=== PATIENT | male | born 1950 | race Caucasian/White ===

== ENCOUNTER 2017-06-05 08:35 | Inpatient (IN) | payer OTHER, MEDICARE ==
[2017-05-24 10:58] LABS: BASOPHILS 0.7 %; BASOPHILS ABSOLUTE 0.05 10/3/uL (0.0-0.16); EOSINOPHILS 2.6 %; EOSINOPHILS ABSOLUTE 0.19 10/3/uL (0.0-0.53); HEMATOCRIT 46.8 % (40.0-51.0); HEMOGLOBIN 16.6 g/dL (13.6-17.8); IMMATURE GRANULOCYTES 0.3 %; IMMATURE GRANULOCYTES ABSOLUTE 0.02 10/3/uL (0.0-0.11); LYMPHOCYTES 30.6 %; LYMPHOCYTES ABSOLUTE 2.23 10/3/uL (0.67-4.30); MANUAL DIFF NO %; MEAN CORPUS HGB CONC 35.5 g/dL (32.0-36.0); MEAN CORPUSCULAR HEMOGLOB 31.3 pg (26.0-34.0); MEAN CORPUSCULAR VOLUME 88.1 fL (80-100); MEAN PLATELET VOLUME 9.8 fL (9.2-13.0); MONOCYTES ABSOLUTE 0.51 10/3/uL (0.21-1.20); NEUTROPHILS 58.8 %; NEUTROPHILS ABSOLUTE 4.29 10/3/uL (2.02-8.40); PLATELET COUNT 158 10/3/uL (150-400); RBC DISTRIBUTION WIDTH 12.6 % (12.0-16.0); RED CELL COUNT 5.31 10/6/uL (4.7-6.1); WHITE BLOOD CELLS 7.3 10/3/uL (4.5-10.5)
[2017-05-24 11:13] LABS: ASCORBIC ACID (UR NOT ORDER) NEG (NEG); BILIRUBIN, URINE NEGATIVE (NEG); INTERNATIONAL NORMAL RATI 1.1 UNITS (-); KETONE, URINE NEGATIVE (NEG); LEUKOCYTE ESTERASE(NOT OR NEG (NEG); PROTIME (NOT ORD) 13.9 SEC (12.0-14.5); WBC (NOT ORDERED) (RFLEX) 1 (0-5)
[2017-05-24 11:16] LABS: A/G RATIO 1.3 (0.7-1.9); ALKALINE PHOSPHATASE 79 U/L (45-117); BUN (BLOOD UREA NITROGEN) 13 MG/DL (6-23); CALCIUM, SERUM 8.8 MG/DL (8.5-10.4); CHLORIDE, SERUM 104 MMOL/L (96-112); CO2 (CARBON DIOXIDE) 32 MMOL/L (24-34); CREATININE 0.86 MG/DL (0.70-1.30); GFR AFRICAN AMERICAN 104 ML/MIN (>=60); GFR NON AFRICAN AMERICAN 90 ML/MIN (>=60); GLUCOSE, SERUM 85 MG/DL (60-99); POTASSIUM, SERUM 4.3 MMOL/L (3.5-5.3); SGOT(AST) 22 U/L (5-40); SGPT(ALT) 33 U/L (5-65); SODIUM, SERUM 140 MMOL/L (135-148); TOTAL BILIRUBIN 0.8 MG/DL (0-1.2)
[~2017-06-05] VITALS: Ht 194.3 cm; Wt 112.3 kg
--- NOTE | ~2017-06-05 | OP ---
Record Of Operation [facility] [address] [place]. [address] NAME: PRIYANKA PATEL : 50 STATUS : ADM IN PAT#: [id number] AGE: 67 ADM/REG DATE : 06/05/17 MR#: [id number] REPORT SERV DATE: 06/06/17 DICTATED BY: DARLENE PAULINO DATE: 06/05/17 REPORT STATUS : Draft TRANSCRIBED BY: MODL DATE: 06/05/17 DATE OF PROCEDURE: 06/05/2017 PREOPERATIVE DIAGNOSIS: Left knee arthritis. POSTOPERATIVE DIAGNOSIS: Left knee arthritis. PROCEDURE PERFORMED: Left total knee arthroplasty. SURGEON: Darlene Paulino MD HAND SALTER: Suraj Martinez. ANESTHESIA: General with adductor block and local infusion. PROCEDURE IN DETAIL: The patient is clearly identified and after obtaining informed consent is brought to the operating room at [facility] where anesthesia is induced uneventfully with excellent anesthetic effect. Subsequently, the affected extremity is prepped and draped in the usual manner and after an appropriate time-out procedure is performed, via an anterior approach, the skin is divided, fascial planes are elevated, paramedial approach to the knee is made. The structures themselves are elevated, excised, and debrided were appropriate, whereupon the patella is carefully everted, calipered, and planed and with the size and type being reproduced with the appropriate-size patella, trialing is performed successfully. At this point, the patella is then carefully subluxed laterally, the knee is flexed, osteophytes around the distal femur are removed, followed by the ACL being divided. The femoral canal is entered and vented, at which point with the intramedullary guide being utilized, the distal femoral cut is made. At this point, the tibia is carefully subluxed anteriorly. The surrounding soft tissues to the tibia are protected with Hohmann retractors, at which point the extramedullary guide is utilized to perform the proximal tibial cut and after cleansing these tissues, the spacer block is utilized in extension to confirm excellent extension, stability, and alignment. The guiding pins are then all carefully removed and the knee is then flexed. The femur is sized, whereupon the anterior, posterior, chamfer, and box cuts are made appropriately. The proximal tibia then is assessed. Osteophytes and surrounding soft tissues are removed and debrided were appropriate. Posterior osteophytes are removed as well. The menisci are excised and thus concluding trialings performed successfully. The proximal tibia then is carefully prepared utilizing proper cement technique. The permanent implants have been carefully placed into position uneventfully where upon copious irrigations performed, the permanent tibial implants applied and thus concluded. The joint was then copiously irrigated, at which point it is closed carefully in layers including Vicryl and gala for the skin, at which point Aquacel sterile dressing is applied. The patient is allowed to awaken and is transferred to the bed and subsequently to the recovery room in stable condition having tolerated the procedure well. ESTIMATED BLOOD LOSS: 75. Record Of Operation [facility] [address] [place]. [address] NAME: PRIYANKA PATEL : 50 STATUS : ADM IN [facility]#: [id number] AGE: 67 ADM/REG DATE : 06/05/17 MR#: [id number] REPORT SERV DATE: 06/06/17 DICTATED BY: DARLENE PAULINO DATE: 06/05/17 REPORT STATUS : Draft TRANSCRIBED BY: WILL DATE: 06/05/17 FLUIDS: 2000. TOURNIQUET TIME: 52 minutes. PATHOLOGY: Sent specimen. MICROBIOLOGY: None. COMPLICATIONS: None. SPONGE AND NEEDLE COUNTS: Reportedly correct. ANTIBIOTICS: Administered appropriately preoperatively and ordered to be discontinued within 23 hours. IMPLANTS: Attune knee by DePuy, femur 9, tibia 9, patella 41, polyethylene 05/29. NICK/WILL Darlene Paulino M.D. / [id number] CC: Darlene Paulino M.D.
[~2017-06-05 08:35] MED LIST: BACDS PO; LIPITOR20 PO; LISINOPRIL40 MG PO; NORCO1 TA1 PO; PRAVAC PO; PRIN20 PO; PROAIRRESP INH; TOPXL50 PO; ULTRAM50 PO; ZESTRIL10 MG PO
[2017-06-06 04:44] LABS: HEMATOCRIT 38.7 % (40.0-51.0); HEMOGLOBIN 13.7 g/dL (13.6-17.8)
[2017-06-06 04:51] LABS: INTERNATIONAL NORMAL RATI 1.2 UNITS (-); PROTIME (NOT ORD) 14.9 SEC (12.0-14.5)
[2017-06-06 04:55] LABS: CHLORIDE, SERUM 102 MMOL/L (96-112); CREATININE 0.84 MG/DL (0.70-1.30); GFR AFRICAN AMERICAN 105 ML/MIN (>=60); GFR NON AFRICAN AMERICAN 91 ML/MIN (>=60); POTASSIUM, SERUM 4.4 MMOL/L (3.5-5.3); SODIUM, SERUM 135 MMOL/L (135-148)
[2017-06-06 04:56] LABS: BUN (BLOOD UREA NITROGEN) 19 MG/DL (6-23); CALCIUM, SERUM 7.8 MG/DL (8.5-10.4); CO2 (CARBON DIOXIDE) 26 MMOL/L (24-34); GLUCOSE, SERUM 148 MG/DL (60-99)
[2017-06-07 06:06] LABS: HEMATOCRIT 35.9 % (40.0-51.0); HEMOGLOBIN 12.7 g/dL (13.6-17.8)
[2017-06-07 06:13] LABS: INTERNATIONAL NORMAL RATI 1.7 UNITS (-); PROTIME (NOT ORD) 19.8 SEC (12.0-14.5)
[2017-06-07] MEDS ORDERED: ULTRAM50 PO (12:53)
[2017-06-07] MEDS ORDERED: COUMADIN3 MG PO (12:54)
== END 2017-06-07 14:14 | disposition home or self-care (01) | DRG 470 ==
LOC: ENRESERV → ENRESERVDT → ENRESERVTM → SDC/OF 08:35 → 3JRC 08:35 → PACU 15:07 → 3JRC 16:45
PROVIDERS: Orthopaedic Surgery
PROC: 3E0T3CZ (ICD-10-PCS; 2017-06-05)
PROC: 0SRD0J9 Replacement of Left Knee Joint with Synthetic Substitute, Cemented, Open Approach (ICD-10-PCS; principal; 2017-06-05 11:30)
DX: M17.12 Unilateral primary osteoarthritis, left knee (principal); I10 Essential (primary) hypertension; E78.5 Hyperlipidemia, unspecified; J45.909 Unspecified asthma, uncomplicated; R11.0 Nausea; R33.8 Other retention of urine; Z79.899 Other long term (current) drug therapy; Z87.891 Personal history of nicotine dependence
CPT/HCPCS: 36415; 71020; 80048; 80053; 81001; 85014; 85018; 85025; 85610; 86850; 86900; 86901; 87641; 88305; 88311; 93005; 97150-GP; 97161-GP; 97165-GO; 97535-GO; A9270-GY; C1776; G8987-CI-GO; G8988-CH-GO; G8989-CH-GO; J0690; J1170; J1885; J2250; J2270; J2405; J2795; J3010